=== PATIENT | male | born 1975 | race Caucasian/White ===

== ENCOUNTER 2023-06-04 08:17 | Observation (INO) ==
[2023-06-04] MEDS ORDERED: D5 LR 1,000 ML 1,000 ML IV ONE (08:35)
[2023-06-04] MEDS ORDERED: XYLOCAINE 2 % (PLAIN) ONE (09:18)
[2023-06-04] MEDS ORDERED: DIPRIVAN VIAL 20 ML ONE ×2 (09:18→09:50)
[2023-06-04 10:44] LABS: BASOPHILS % (AUTO) 0.6 % (0.2-1.0); EOSINOPHILS # (AUTO) 0.2 x10^3/uL (0.0-0.2); EOSINOPHILS % (AUTO) 2.2 % (0.9-2.9); HEMOGLOBIN 10.3 g/dL (13.5-18.0); LYMPHOCYTES # (AUTO) 1.8 X10^3/uL (1.3-2.9); LYMPHOCYTES % (AUTO) 24.8 % (21.0-51.0); MEAN CORPUSCULAR HEMOGLOBIN 31.4 pg (27.0-34.0); MEAN CORPUSCULAR HGB CONC 35.6 g/dL (33.0-35.0); MEAN CORPUSCULAR VOLUME 88.2 fL (80.0-100.0); MEAN PLATELET VOLUME 7.4 fL (7.4-11.0); MONOCYTES # (AUTO) 0.5 x10^3/uL (0.3-0.8); MONOCYTES % (AUTO) 6.4 % (0.0-13.0); NEUTROPHILS # (AUTO) 4.9 x10^3/uL (2.2-4.8); PLATELET COUNT 200 X10^3/uL (150.0-450.0); RED BLOOD COUNT 3.28 X10^6/uL (4.7-6.0); RED CELL DISTRIBUTION WIDTH 13.1 % (11.6-16.5); WHITE BLOOD COUNT 7.4 X10^3/uL (3.6-10.0)
[2023-06-04 10:58] LABS: ALANINE AMINOTRANSFERASE 34 Units/L (12-78); ALBUMIN 3.1 g/dL (3.4-5.0); ALKALINE PHOSPHATASE 46 Units/L (46-116); ASPARTATE AMINO TRANSFERASE 16 Units/L (15-37); BLOOD UREA NITROGEN 6 mg/dL (7-18); CALCIUM 8.2 mg/dL (8.5-10.1); CARBON DIOXIDE 34.6 mmol/L (21-32); CHLORIDE 105 mmol/L (98-107); COR CA(FOR HYPOALB) 8.9 mg/dL (8.5-10.1); COR NA(FOR HYPERGLY) 139 mmol/L (136-145); CREATININE 0.93 mg/dL (0.70-1.30); GLUCOSE 151 mg/dL (65-99); SODIUM 138 mmol/L (136-145); TOTAL PROTEIN 5.6 g/dL (6.4-8.2); eGFR NON BLACK RACES > 60 (>60)
[2023-06-04] MEDS: D5 1/2 NS 1,000 ML 1,000 ML IV SCH ×2 (12:49→20:39)
[2023-06-04] MEDS: GOLYTELY or GAVILYTE or Equivalent PO SCH (12:50)
[2023-06-04 16:01] VITALS: BMI 34.9
[2023-06-04 20:13] VITALS: RESP 18
[2023-06-05] MEDS: D5 1/2 NS 1,000 ML 1,000 ML IV SCH ×2 (04:24→14:17)
[2023-06-05 06:08] LABS: BLOOD UREA NITROGEN 3 mg/dL (7-18); CALCIUM 8.5 mg/dL (8.5-10.1); CARBON DIOXIDE 30.5 mmol/L (21-32); CHLORIDE 105 mmol/L (98-107); COR NA(FOR HYPERGLY) 141 mmol/L (136-145); CREATININE 0.92 mg/dL (0.70-1.30); GLUCOSE 116 mg/dL (65-99); POTASSIUM 3.7 mmol/L (3.5-5.1); SODIUM 141 mmol/L (136-145); eGFR NON BLACK RACES > 60 (>60)
[2023-06-05 06:19] LABS: BASOPHILS % (AUTO) 0.4 % (0.2-1.0); EOSINOPHILS # (AUTO) 0.2 x10^3/uL (0.0-0.2); EOSINOPHILS % (AUTO) 2.6 % (0.9-2.9); HEMATOCRIT 28.2 % (42.0-54.0); HEMOGLOBIN 10.1 g/dL (13.5-18.0); LYMPHOCYTES # (AUTO) 2.3 X10^3/uL (1.3-2.9); LYMPHOCYTES % (AUTO) 27.9 % (21.0-51.0); MEAN CORPUSCULAR HEMOGLOBIN 31.7 pg (27.0-34.0); MEAN CORPUSCULAR HGB CONC 35.9 g/dL (33.0-35.0); MEAN CORPUSCULAR VOLUME 88.4 fL (80.0-100.0); MEAN PLATELET VOLUME 7.4 fL (7.4-11.0); MONOCYTES # (AUTO) 0.6 x10^3/uL (0.3-0.8); MONOCYTES % (AUTO) 6.8 % (0.0-13.0); NEUTROPHILS # (AUTO) 5.2 x10^3/uL (2.2-4.8); NEUTROPHILS % (AUTO) 62.3 % (42.0-75.0); PLATELET COUNT 233 X10^3/uL (150.0-450.0); RED BLOOD COUNT 3.19 X10^6/uL (4.7-6.0); RED CELL DISTRIBUTION WIDTH 13.2 % (11.6-16.5); WHITE BLOOD COUNT 8.3 X10^3/uL (3.6-10.0)
[2023-06-05 06:24] LABS: ALANINE AMINOTRANSFERASE 35 Units/L (12-78); ALKALINE PHOSPHATASE 46 Units/L (46-116); ASPARTATE AMINO TRANSFERASE 16 Units/L (15-37); COR CA(FOR HYPOALB) 9.3 mg/dL (8.5-10.1); TOTAL PROTEIN 5.6 g/dL (6.4-8.2)
[2023-06-05] MEDS ORDERED: NS 500 ML IV 500 ML IV ONE (11:57)
[2023-06-05] MEDS ORDERED: DIPRIVAN VIAL 20 ML ONE ×2 (12:02→12:11)
[2023-06-05 12:34] VITALS: TEMP 98.2; O2SAT 93
[2023-06-05 14:09] VITALS: BP 138/82; PULSE 78
[2023-06-05] MEDS: GOLYTELY or GAVILYTE or Equivalent PO SCH (14:17)
== END 2023-06-05 14:35 | disposition home or self-care (01) ==
LOC: SURG1 08:17 → MED/SURG 08:17
PROVIDERS: ADMIT Surgery; ATTEND Surgery
DX: R10.12 Left upper quadrant pain; Z80.0 Family history of malignant neoplasm of digestive organs; K29.70 Gastritis, unspecified, without bleeding; Z86.010 Personal history of colon polyps; K57.30 Diverticulosis of large intestine without perforation or abscess without bleeding; D64.89 Other specified anemias; K62.5 Hemorrhage of anus and rectum